=== PATIENT | male | born 1960 ===

== ENCOUNTER 2019-04-05 13:57 | Emergency (ER) | payer SELFPAY ==
--- NOTE | 2019-04-05 14:56 | NUR ---
SECOND CALL, NOT IN LOBBY
--- NOTE | 2019-04-05 15:10 | NUR ---
THIRD CALL NOT IN LOBBY
== END 2019-04-05 15:10 | disposition left against medical advice (07) ==
LOC: ER 13:58
DX: S67.20XA Crushing injury of unspecified hand, initial encounter (principal); Z53.21 Procedure and treatment not carried out due to patient leaving prior to being seen by health care provider